=== PATIENT | female | born 1975 | race Caucasian/White ===

== ENCOUNTER 2021-08-03 09:23 | Outpatient (CLI) | payer BC, SELFPAY ==
--- NOTE | ~2021-08-03 | US_ITS ---
EXAMINATION: US pelvic complete w TV DATE: 08/03/2021 10:09 INDICATION: Irregular menstruation Comparison:No prior studies for comparison. TECHNIQUE: Multiple transabdominal and endovaginal sonographic images of the pelvis performed. FINDINGS: The uterus measures 9.3 x 5.4 x 3.5 cm. There is an IUD in the endometrium. The endometrial complex measures 5 mm. The right ovary measures 2.6 x 1.3 x 1.3 cm and the left ovary is not visualized. There is a hyperech oic focus in the right ovary, likely calcification measuring 3 mm. There are small follicles in each ovary. Normal doppler signal in both ovaries. There is no free fluid in the pelvis. There are no abnormal masses seen on either side. IMPRESSION: 1. Unremarkable pelvic ultrasound. IUD present in the endometrium. Reviewed, dictated and finalized at location A.
== END 2021-08-03 09:24 | disposition home or self-care (01) ==
LOC: ANHIMG 09:29
PROVIDERS: PCP Family Medicine; Visit Provider Obstetrics & Gynecology
DX: N92.6 Irregular menstruation, unspecified (principal); Z97.5 Presence of (intrauterine) contraceptive device
CPT/HCPCS: 76830; 76856

== ENCOUNTER 2021-09-13 14:04 | Outpatient (CLI) | payer BC, SELFPAY ==
--- NOTE | ~2021-09-13 | MM_ITS ---
EXAMINATION: MM screening britt BI w shefali HISTORY: Screening mammogram ; Baseline examination TECHNIQUE: Craniocaudal and mediolateral oblique 3-D tomosynthesis images were obtained and synthetic 2-D images were generated. CAD analysis was submitted and interpreted. COMPARISON: No prior mammogram is available for comparison at this institution. BREAST PARENCHYMAL COMPOSITION: The breasts are heterogeneously dense, which may obscure small masses . FINDINGS: There is no evidence of suspicious mass, calcification, or architectural distortion to sugg est malignancy in either breast. There has been no suspicious interval change. IMPRESSION: 1. No mammographic evidence of malignancy. 2. Recommend routine screening mammography in one year. BI-RADS Category 1: Negative Reviewed, dictated and finalized at location D.
== END 2021-09-13 14:05 | disposition home or self-care (01) ==
LOC: ANHIMG 14:04
PROVIDERS: PCP Family Medicine; Visit Provider Obstetrics & Gynecology
DX: Z12.31 Encounter for screening mammogram for malignant neoplasm of breast (principal)
CPT/HCPCS: 77063; 77067

== ENCOUNTER 2022-01-20 06:25 | Emergency (ER) | payer BC, SELFPAY ==
[2022-01-20 06:28] VITALS: BP 157/96; PULSE 82; RESP 20; TEMP 36.3; O2SAT 98
--- NOTE | 2022-01-20 06:52 | ED.EYEPROB ---
HPI - Eye Problem General Chief complaint: Eye Problems Stated complaint: Eye Swelling Time Seen by Provider: 01/20/22 06:35 History of Present Illness HPI Narrative: Patient is a 46-year-old female who presents ER with a right swollen eye. She reports that yesterday afternoon she was doing laundry and smacked herself in the eye with a chart changer. She had sudden onset pain. She has been having some tearing. Since then she has developed swelling. If she opens her eyelids she has clear vision without flashers or floaters. No purulent discharge. No fevers or chills or sweats. She is unsure if her eye was open or closed when she struck her self with a chart changer but she believes it may have been open. Related Data Home Medications Medication Instructions Recorded Confirmed multivitamin (Multiple Vitamins 1 tablet PO DAILY 07/26/21 07/26/21 tablet) pantoprazole 20 mg tablet,delayed 20 mg PO QAM 07/26/21 07/26/21 release (Protonix) copper 380 square mm intrauterine 1 device intrauterine ONCE 11/08/21 device (ParaGard T 380A) Allergies Allergy/AdvReac Type Severity Reaction Status Date / Time No Known Allergies Allergy Verified 01/20/22 06:31 Review of Systems Constitutional: Constitutional: Denies chills and Denies fever(s) Eyes: Eyes: Denies change in vision and Denies photophobia Comments: Tearing, swelling of upper and lower lid. ENT: Denies nasal congestion and Denies sore throat PMFSH Past Medical History Medical History (Updated 01/20/22 @ 07:12 by Chino Smalls MD) [place] Anxiety Encounter for insertion of ParaGard IUD 2012 removal / reinsertion -11/08/2021 Irregular periods Screening mammogram, encounter for Surgical History Surgical History History of x2 History of tonsillectomy Family History Family History Mother Lung cancer Social History Social History Smoking status: Never smoker Alcohol intake: never Substance use: never Substance use type: does not use Additional living arrangements comments: boyfriend Additional occupation/education comments: Nurse Gender identity (if verbalized by the patient): Female Sexual Orientation (if Verbalized by the Patient): Straight or Heterosexual Exam Narrative: GENERAL: Well-appearing, well-nourished, and in no acute distress. HEAD: Normocephalic, atraumatic. EYES: PERRL and EOMI. right eye with chemosis of the sclera on the lateral aspect with a small red dot where there is likely where she is traumatically struck. Tetracaine applied, as was fluorescein. The eye was viewed under magnification with a slit lamp. Corneal abrasion at the 3 o'clock position. Lid eversion performed and no foreign body identified. Negative Dorothy sign. Visual acuity 20/50 in each eye. EXTREMITIES: Normal range of motion. No edema. SKIN: Warm, dry, no rash. NEURO: Alert and oriented x3. PSYCH: Normal mood and affect. Course Course Emergency Course: Discussed treatment plan. Patient verbalized understanding. Discharge home. Vital Signs Vital signs: Vital Signs Temperature 97.4 F L 01/20/22 06:28 Pulse Rate 82 01/20/22 06:28 Respiratory Rate 20 01/20/22 06:28 Blood Pressure 157/96 H 01/20/22 06:28 Pulse Oximetry 98 01/20/22 06:28 Oxygen Delivery Room Air 01/20/22 06:28 Temperature 97.4 F L 01/20/22 06:28 Pulse Rate 82 01/20/22 06:28 Respiratory Rate 20 01/20/22 06:28 Blood Pressure 157/96 H 01/20/22 06:28 Pulse Oximetry 98 01/20/22 06:28 Oxygen Delivery Room Air 01/20/22 06:28 Discharge Plan Discharge Clinical Impression: Abrasion, corneal Patient Disposition: Home, Self-Care Condition: Stable Instructions: Corneal Abrasion (ED) Additional Instructions: Return to the ER if you have increased pain in yo
[2022-01-20 07:34] VITALS: BP 133/72; PULSE 73; RESP 17; O2SAT 100
== END 2022-01-20 07:39 | disposition home or self-care (01) ==
PROVIDERS: Emergency Provider Emergency Medicine; PCP Family Medicine
DX: S05.01XA Injury of conjunctiva and corneal abrasion without foreign body, right eye, initial encounter (principal); W22.8XXA Striking against or struck by other objects, initial encounter
CPT/HCPCS: 99283

== ENCOUNTER 2025-02-08 07:16 | Emergency (ER) | payer OTHER, SELFPAY ==
--- OUTSIDE RECORDS SUMMARY | 2023-11-27 03:00 | XMS_ITS ---
Author Organization [facility] Address [address] [place] [id number] Care Team Providers Care Cost Accountant Name Role Phone Lucian Lang [facility] [phone] Encounters Encounter Location Date Provider Diagnosis [facility] [address] [place] [address] [address] [place] [address] 11/27/2023 Lucian Lang Plan Of Treatment No Information Progress Notes * Enrico RICHTEROB: 8 (49 yo F)Acc No.[id number]:11/27/2023 Patient: Ama ALFAROel Provider: Danica Lang MD :1975 A ge:48 Y S ex:Female Date:11/27/2023 Address:[facility] Subjective: * Chief Complaints: * * Medical History: Objective: * Vitals: Assessment: Plan: * Treatment: * Billing Information: * Visit Code: * Procedure Codes: * Electronic signature of Lucian Lang MD on 02/08/2025 at 08:15 AM CDT Sign off status: Pending * Provider: Danica Lang MD Date: 11/27/2023 Generated for Lb quijano/Luci/Mally on: 02/08/2025 08:15 AM CDT
--- OUTSIDE RECORDS SUMMARY | 2024-03-19 03:00 | XMS_ITS ---
Author Organization [facility] Address [id number] [place] [address] [address] [place] [address] Care Team Providers Care As400 Analyst Name Role Phone Lanny Tavarez Unavailable [phone] REASON FOR VISIT left low back/hip pain Encounters Encounter Location Date Provider Diagnosis [facility] [address] [facility] [address] [place] [address] 03/19/2024 Lanny Tavarez Plan Of Treatment No Information Progress Notes * RICHTER AmaAmandaOB: 8 (49 yo F)Acc No.[id number]:03/19/2024 Progress Notes Patient: Elana ALFARO Provider: Italo Tavarez MD :1975 A ge:48 Y S ex:Female Date:03/19/2024 Address:[facility] Subjective: * Chief Complaints: * 1 . Left low back/hip pain. * Medical History: Objective: * Vitals: Assessment: Plan: * Treatment: * Billing Information: * Visit Code: * Procedure Codes: * Electronic signature of Nyasia Tavarez MD on 02/08/2025 at 08:15 AM CDT Sign off status: Pending * Provider: Italo Tavarez MD Date: 05/19/2023 Generated for Lb quijano/Luci/eTransmitting on: 0 02/08/2025 08:15 AM CDT
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
[2025-02-08 07:22] VITALS: BP 144/101; PULSE 77; RESP 20; TEMP 36.7; O2SAT 95
--- OUTSIDE RECORDS SUMMARY | 2025-02-08 08:15 | XMS_ITS | Encounter Summary ---
Author Organization [facility] Address [address] [place] [address] Care Team Providers Care Blacksmith Supervisor Name Role Phone Flor Carroll NP Primary Care P emma Reason for Referral * Diagnostic Imaging (Routine) - Closed Specialty Diagnoses / Procedures Referred By Contac t Referred To Contact Diagnoses Mass of lower inner quadrant of left breast Procedures US Breast Left Limited Flor Carroll NP [address] [place] [address] Phone: tel: fax: [facility] Referral ID Status Reason Start Date Expiration Date Visits Re quested Visits Authorized [id number] Closed 01/25/2025 02/24/2026 1 1 * Diagnostic Imaging (Routine) - Closed Specialty Diagnoses / Procedures [facility] Referred To Contact Diagnoses Mass of lower inner quadrant of left breast Procedures Diagnostic Mammogram Left [address] Flor Carroll NP [address] [place] [address] Phone: tel: fax: [facility] Referral ID Status Reason Start Date Expiration Date Visits Re quested Visits Authorized [id number] Closed 01/25/2025 02/24/2026 1 1 Encounter Details Date Type Department Care Team (Late st Contact Info) Description 01/25/2025 Results Follow-Up [facility] Primary [facility] at [facility] [address] [place] [address] Flor Carroll NP [address] [place] [address] Screening Mammogram Bilateral [address] Social History Tobacco Use Types Packs/Day Years Used Date Smoking Tobacco: Never Smokeless Tobacco: Never AUDIT-C Answer Date Recorded Q1: How often do you have a drink containing alcohol? Never 09/10/2024 Q2: How many drinks containi ng alcohol do you have on a typical day when you are drinking? Patient does not drink Q3: How often do you have si x or more drinks on one occasion? 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 No mammographic evidence of malignancy in the left breast. OVERALL FINAL ASSESSMENT: BI-RADS Category 2: Benign. RECOMMENDATION: Annual screening mammography is recommended. Dr. Val Nieves discussed the above findings and recommendations with the patient, who expressed her understanding of the management plan. Dictated by: Val Nieves MD, PhD The radiology attending physician has personally reviewed this study, and had reviewed and/or edited this written report and agrees with it. Electronically signed by: Emerita Mckenzie M.D. Narrative 02/02/2025 11:24 AM CDT EXAMINATION: LEFT UNILATERAL DIGITAL DIAGNOSTIC MAMMOGRAM AND DIGITAL BREAST TOMOSYNTHESIS; LEFT BREAST SONOGRAM HISTORY: 49-year-old called back from screening mammogram dated 01/07/2025 due to mass within the lower inner quadrant of the LEFT breast. COMPARISON: Screening mammograms dated 01/07/2025, 06/13/2023 TECHNIQUE: Full field digital mammographic views of the LEFT breast were performed, including computer aided detection (CAD) and digital breast tomosynthesis (DBT). Directed ultrasound evaluation of the LEFT breast was performed. BREAST PARENCHYMAL COMPOSITION: The breasts are heterogeneously dense, which may obscure small masses. MAMMOGRAM FINDINGS: Additional views of the LEFT breast, including spot compression views, demonstrate a persistent oval 5 mm equal density mass with margins in the lower central quadrant at anterior depth. There is no suspicious architectural distortion or grouped microcalcifications. SONOGRAM FINDINGS: Targeted sonographic images in the left breast at the 6:00 location 3 cm from the nipple demonstrates an oval anechoic 0.4 x 0.3 x 0.5 cm cyst with circumscribed margins, no internal vascularity, and posterior acoustic enhancement, consistent with a simple cyst. Flor Carroll NP IMG MAMMO IGNA[facility]IO [facility] Final Result * Diagnostic Mammogram Left [address] (02/02/2025 10:31 AM CDT) Anatomical Region Laterality Modality Breast Left Mammography 02/02/2025 10:5 0 AM CDT Impressions 02/02/2025 11:24 AM CDT Benign simple 0.5 cm cyst in the left breast at the 6:00 location 3 cm from the nipple correlates with screening detected mass. No mammographic evidence of malignancy in the left breast. OVERALL FINAL ASSESSMENT: BI-RADS Category 2: Benign. RECOMMENDATION: Annual screening mammography is recommended. Dr. Val Nieves discussed the above findings and recommendations with the patient, who expressed her understanding of the management plan. Dictated by: Val Nieves MD, PhD The radiology attending physician has personally reviewed this study, and had reviewed and/or edited this written report and agrees with it. Electronically signed by: Emerita Mckenzie M.D. Narrative 02/02/2025 11:24 AM CDT EXAMINATION: LEFT UNILATERAL DIGITAL DIAGNOSTIC MAMMOGRAM AND DIGITAL BREAST TOMOSYNTHESIS; LEFT BREAST SONOGRAM HISTORY: 49-year-old called back from screening mammogram dated 01/07/2025 due to mass within the lower inner quadrant of the LEFT breast. COMPARISON: Screening mammograms dated 01/07/2025, 06/13/2023 TECHNIQUE: Full field digital mammographic views of the LEFT breast were performed, including computer aided detection (CAD) and digital breast tomosynthesis (DBT). Directed ultrasound evaluation of the LEFT breast was performed. BREAST PARENCHYMAL COMPOSITION: The breasts are heterogeneously dense, which may obscure small masses. MAMMOGRAM FINDINGS: Additional views of the LEFT breast, including spot compression views, demonstrate a persistent oval 5 mm equal density mass with margins in the lower central quadrant at anterior depth. There is no suspicious architectural distortion or grouped microcalcifications. SONOGRAM FINDINGS: Targeted sonographic images in the left breast at the 6:00 location 3 cm from the nipple demonstrates an oval anechoic 0.4 x 0.3 x 0.5 cm cyst with circumscribed margins, no internal vascularity, and posterior acoustic enhancement, consistent with a simple cyst. Flor Carroll NP IMG MAMMO PROCE [facility] Final Result documented in this encounter Visit Diagnoses Diagnosis Mass of lower inner quadrant of left breast- Primary Mass of lower inner quadrant of left breast Mass of lower inner quadrant of left breast documented in this encounter Care Teams Blacksmith Supervisor Relationship Specialty Start Date End Date Flor Carroll NP [address] [place] [address] PCP - General Family Medicine 09/10/24 documented as of this encounter
--- OUTSIDE RECORDS SUMMARY | 2025-02-08 08:15 | XMS_ITS | Clinical Summary ---
Author Organization [facility] [address] [place] [address] Care Team Providers Care Crane Hooker Name Role Phone Flor Carroll NP Primary Care P aaronder Allergies No known active allergies Medications multivitamin tablet Take 1 tablet by mouth daily Active traZODone (DESYREL) 100 mg tablet Take 1 tablet (100 mg total) by mouth nightly 90 tablet 3 5 Active rOPINIRole (REQUIP) 0.5 mg tabletIndicatio ns:Restless Legs Syndrome Take one tab morning , 1 tab afternoon , 2 tabs at bedtime 360 tablet 3 5 Active Active Problems Problem Noted Date Diagnosed Date Iron deficiency anemia 09/14/2024 Vitamin D deficiency 09/14/2024 Screening for colon cancer 09/14/2024 Restless leg Insomnia Encounters Date Type Department Care Team Description 02/02/2025 10:14 AM CDT - 02/02/2025 11:59 PM CDT Hospital Encounter [facility] [address] [place] [address] Mass of lower inner quadrant of left breast Discharge Disposition: Discharge to home or self care 02/02/2025 10:13 AM CDT - 02/02/2025 11:59 PM CDT Hospital Encounter [facility] [address] [place] [address] Mass of lower inner quadrant of left breast Discharge Disposition: Discharge to home or self care 01/25/2025 Results Follow-Up [facility] Primary Care at [address] [address] Flor Carroll NP Screening Mammogram Bilateral W Ariel 01/07/2025 5:52 PM CDT - 01/07/2025 11:59 PM CDT Hospital Encounter [address] [address] Encounter for screening mammogram for malignant neoplasm of breast Discharge Disposition: Discharge to home or self care from Last 3 Months Immunizations Immunization Administration Dates Next Due COVID-19 mRNA ([place]) 0.3 m L (30 mcg) vaccine (12 years and up) 02/23/2023 Influenza, Quadrivalent, Spl it, Preservative Free, Intramuscular 02/23/2023,02/21/2021 Influenza, Unspecified 02/11/2024 Surgical History Surgery Date Site/Laterality Comments SECTION TONSILLECTOMY Medical History Medical History Date Comments Restless leg Insomnia Family History Medical History Relation Name Comments No Known Problems Father Cancer Mother Hypertension Mother Relation Name Status Comments Father Mother Social History Tobacco Use Types Packs/Day Years Used Date Smoking Tobacco: Never Smokeless Tobacco: Never Tobacco Cessation:Counseling Given: Not Answered AUDIT-C Answer Date Recorded Q1: How often [...] on file Legal 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 Gender Identity Not on file Sexual Orientation Not on file Obstetrics History Para Term AB IAB SAB Ectopic Multiple Livin g Live Births 5 2 Date Outcome GA Total Labor Labor/2nd/3rd Weight Sex Type Anes PTL Diana A1 A5 Name Clin Last Filed Vital Signs Vital Sign Reading Time Taken Comments Blood Pressure 120/92 09/10/2024 8:34 AM CDT Pulse 64 09/10/2024 8:34 AM CDT Temperature - - Respiratory Rate - - Oxygen Saturation 99% 09/10/2024 8:34 AM CDT Inhaled Oxygen Concentration - - Weight 62.1 kg (137 lb) 01/07/2025 6:03 PM CDT Height 172.7 cm (5' 8) 01/07/2025 6:03 PM CDT Body Mass Index 20.83 01/07/2025 6:03 PM CDT Plan of Treatment Health Maintenance Due Date Last Done Comments Cervical Cancer Screening 1977 Colon Cancer Screening-Colonoscopy 1977 Hepatitis C Screening 1977 DTaP/Tdap/Td Vaccine (1 - Tdap) 1988 Hepatitis B Screening 1995 Covid-19 Vaccine ( season) 2025 02/23/2023, 02/23/2023, 02/23/2023, Additional history exists Influenza Vaccine (#1) 2025 , 02/23/2023, 02/21/2021 Depression Screening 09/10/2025 09/10/2024 Regular Well Visit/Exam 18-64 09/10/2025 09/10/2024 Breast Cancer Screening-Mammogram 01/07/2026 01/07/2025, 06/13/2023, 06/13/2023, Additional history exists Pneumococcal vaccine <65 Aged Out No longer eligible based on patient's age to complete this topic Procedures Procedure Name Priority Date/Time Associated Diagnosis Comments US BREAST LEFT LIMITED Routine 02/02/2025 10:45 AM CDT Mass of lower inner quadrant of left breast DIAGNOSTIC MAMMOGRAM LEFT W ARIEL Routine 02/02/2025 10:31 AM CDT Mass of lower inner quadrant of left breast SCREENING MAMMOGRAM BILATERAL W ARIEL Schedule Routine, Read Routine (OP Routine) 01/07/2025 6:19 PM CDT Encounter for screening mammogram for malignant neoplasm of breast STOOL DNA COLOGUARD Routine 12/20/2024 4:35 PM CDT Screening for colon cancer from Last 3 Months Results * US Breast Left Limited (02/02/2025 [...] acoustic enhancement, consistent with a simple cyst. us Flor Carroll LAST CODE STRIPER IMG MAMMO IGNACIO NASH Final Result * [...] consistent with a simple cyst. Flor Carroll LAST CODE STRIPER [facility] MAMMO PROCE DURES Final Result * (ABNORMAL) Screening Mammogram Bilateral W Ariel (01/07/2025 6:19 PM CDT) Anatomical Region Laterality Modality Breast Bilateral Mammography Impressions 01/22/2025 1:55 PM CDT Left 1) Mass: Left breast mass in the lower inner quadrant in the anterior depth. Right No evidence of malignancy. OVERALL BI-RADS FINAL ASSESSMENT: 0 - Incomplete: Needs Additional Imaging Evaluation RECOMMENDATIONS: Recommend left breast diagnostic mammogram with possible ultrasound. Narrative 01/22/2025 1:55 PM CDT EXAMINATION: Screening Mammogram Bilateral W Ariel: 01/07/2025 COMPARISON: Prior outside mammogram from 06/13/2023 TECHNIQUE: Mammography was performed with 2D and digital breast tomosynthesis (DBT) images. CAD was utilized. BREAST PARENCHYMAL COMPOSITION: The breasts are heterogeneously dense, which may obscure small masses. FINDINGS: Left 1) Mass: There is a small round mass with circumscribed margins seen in the lower inner quadrant of the left breast in the anterior depth. Right There is no suspicious mass, calcification, or architectural distortion. There has been no suspicious interval change. Flor Carroll NP [facility] MAMMO PROCE DURES Final Result * Stool DNA - Cologuard (12/20/2024 4:35 PM CDT) Pathologist [facility] Stool DNA - Cologuard Negative Negative [facility] (CLIA #:[id number]) Comment: The Cologuard (TM) test was performed on this specimen. NEGATIVE TEST RESULT. A negative Cologuard result indicates a low likelihood that a colorectal cancer (CRC) or advanced adenoma (adenomatous polyps with more advanced pre-malignant features) is present. The chance that a person with a negative Cologuard test has a colorectal cancer is less than 1 in 1500 (negative predictive value >99.9%) or has an advanced adenoma is less than 5.3% (negative predictive value 94.7%). These data are based on a prospective cross-sectional study of 10,000 individuals at average risk for colorectal cancer who were screened with both Cologuard and colonoscopy. (Guerrero Izaguirre al, N Engl J Med 2014;370(14):1286- 1297) The normal value (reference range) for this assay is negative. COLOGUARD RE-SCREENING RECOMMENDATION: Periodic colorectal cancer screening is an important part of preventive healthcare for asymptomatic individuals at average risk for colorectal cancer. Following a negative Cologuard result, the [place] Cancer Society and U.S. Multi-Society Task Force screening guidelines recommend a Cologuard re-screening interval of 3 years. References: [place] Cancer Society Guideline for Colorectal Cancer Screening: https://www.cancer.org/cancer/xwjij-qdixdh-xxlgcl/idbwrtbak-nigycnmsf-xeqmtii/ac s-rec ommendations.html.; Flip DK, Ezekiel BALBUENA, Kenya BunnK, Colorectal Cancer Screening: Recommendations for Physicians and Patients from the U.S. Multi-Society Task Force on Colorectal Cancer Screening , Am J Gastroenterology 2017; 112:9956-8507. TEST DESCRIPTION: Composite algorithmic analysis of stool DNA-biomarkers with hemoglobin immunoassay. Quantitative values of individual biomarkers are not reportable and are not associated with individual biomarker result reference ranges. Cologuard is intended for colorectal cancer screening of adults of either sex, 45 years or older, who are at average-risk for colorectal cancer (CRC). Cologuard has been approved for use by the U.S. FDA. The performance of Cologuard was established in a cross sectional study of average-risk adults aged 50-84. Cologuard performance in patients ages 45 to 49 years was estimated by sub-group analysis of near-age groups. Colonoscopies performed for a positive result may find as the most clinically significant lesion: colorectal cancer [4.0%], advanced adenoma (including sessile serrated polyps greater than or equal to 1cm diameter) [20%] or non- advanced adenoma [31%]; or no colorectal neoplasia [45%]. These estimates are derived from a prospective cross-sectional screening study of 10,000 individuals at average risk for colorectal cancer who were screened with both Cologuard and colonoscopy. (Guerrero Dang, N Engl J Med 2014;370(14):8839-6381.) Cologuard may produce a false negative or false positive result (no colorectal cancer or precancerous polyp present at colonoscopy follow up). A negative Cologuard test result does not guarantee the absence of CRC or advanced adenoma (pre-cancer). The current Cologuard screening interval is every 3 years. ([place] Cancer Society and U.S. Multi-Society Task Force). Cologuard performance data in a 10,000 patient pivotal study using colonoscopy as the reference method can be accessed at the following location: www.[employer]/results. Additional description of the Cologuard test process, warnings and precautions can be found at www.cologuard.com. Stool 12/20/2024 4:35 PM CDT 12/22/2024 10:01 AM CDT Flor Carroll NP LAB BODY FLUIDS AND STOOLS ORDERABLES Final Result [facility] (CLIA #:[id number]) [address] [place] [address] from Last 3 Months Insurance [employer] Address: [facility] [id number] [id number] Care Teams Crane Hooker Relationship Specialty Start Date End Date Alvarez-Flor Ronquillo NP [address] [place] [address] PCP - General Family Medicine 09/10/24
--- OUTSIDE RECORDS SUMMARY | 2025-02-08 08:15 | XMS_ITS | Patient Health Record ---
Author Organization [facility] Address [address] [place] [address] Care Team Providers Care Production Assistant Name Role Phone Lanny Tavarez Unavailable [phone] Allergies No Known Allergies Reason For Referral No Information Medications Medication SIG (Take, Route, Fr equency, Duration) Notes Start Date End Date Status Ondansetron HCl 4 MG Oral; Duration: 3 Days Active FeroSul 325 (65 Fe) MG TAKE 1 TABLET BY MOUTH 2 TIMES DAILY Oral; Duration: 30 Days Active Cephalexin 500 MG TAKE ONE CAPSULE BY MOUTH EVERY 6 HOURS Oral; Duration: 5 Days Active Ibuprofen 800 MG TAKE 1 TABLET BY EZEQUIEL TH EVERY 8 HOURS NEEDED FOR PAIN Oral; Duration: 14 Days Active traZODone HCl 100 MG Oral; Duration: 30 Days Active rOPINIRole HCl 0.5 MG Oral; Duration: 30 Days Active Social History Tobacco Use: Social History Observation Description Date Details (start date - stop date) Never Smoker NA - NA Tobacco Control (Standard) Question Answer Notes Tobacco use: Nonsmoker Plan Of Treatment No Information Insurance Providers Payer Name Payer Address Payer Phone Subscriber Number Group Number Insured Name Patient Relationship to Insured Coverage Start Date Coverage End Date [facility] [address] [place] [address] [id number] Elana Snyder Self - patient is the insured Medications Administered Medication Instructions Date of Administration Dosage Notes Cerv / Thor Facet Joint Inj 1st Level 12/12/2023 Cerv / Thor Para-Med Branch 1st Level 12/26/2023 LEFT T11,12,L1 MBNB #2 Cerv / Thor Radiofreq Ablation 1st Level 01/22/2024 Lumb / Sacro Facet Joint Inj 1st Level 12/12/2023 Lumb / Sacro Para-Med Branch 1st Level 12/26/2023 Lumbar Radiofreq Ablation 1st Level 01/22/2024
--- OUTSIDE RECORDS SUMMARY | 2025-02-08 08:15 | XMS_ITS | Clinical Summary ---
Author Organization [facility] Address [address] [place] [address] Care Team Providers Care Manager Agricultural Name Role Phone Unavailable Primary Care Provider Unavailabl e Medications multivitamin (DAILY-DEUCE) tablet Take 1 Tablet by mouth daily. Active INTRAUTERINE DEVICE, IUD, INTRAUTERINE by Intrauterine route. paraguard Active ondansetron (ZOFRAN) 4 mg Tablet Take 1 Tablet (4 mg) by mouth every 8 hours as needed for Nausea/Emesis. 9 Tablet 4 Active ferrous sulfate 325 mg (65 mg iron) tabletIndication s:Iron deficiency anemia, unspecified iron deficiency anemia type Take 1 Tablet (325 mg) by mouth 2 times daily. 60 Tablet 2 4 Active rOPINIRole (REQUIP) 0.5 mg tablet TAKE 1 TABLET EVERY MORNING, 1 TABLET AT MID DAY AND 2 TABLETS AT BEDTIME. 360 Tablet 5 Active traZODone (DESYREL) 100 mg tablet TAKE 1 TABLET(100 MG) BY MOUTH DAILY AT BEDTIME 90 Tablet 3 5 Active Active Problems Problem Noted Date Diagnosed Date Other insomnia 05/22/2023 Overview (05/22/2023): - Medications include: Trazodone, Previously Melatonin - Hours of sleep per day: 7-8 - Sleep onset/maintenance?: both - Side effects?: none Assessment & Plan (05/22/2023 12:03 PM HEADLINER INSTALLER): Symptoms well-controlled. Continue medications as above. Good sleep hygieine reinforced. Encounters Date Type Department Care Team Description 01/27/2025 External Device Data ST[facility] ABSTRACTION Provider, Abstract 01/26/2025 External Device Data STL ABSTRACTION Provider, Abstract 12/15/2024 External Device Data STL ABSTRACTION Provider, Abstract 11/25/2024 External Device Data STL ABSTRACTION Provider, Abstract 11/24/2024 External Device Data STL ABSTRACTION Provider, Abstract from Last 3 Months Immunizations Immunization Administration Dates Next Due Influenza Seasonal Unspecified Formulation IM Family History Medical History Relation Name Comments No Known Problems Son 1 No Known Problems Son 2 son Relation Name Status Comments Father Maternal Grandfather Maternal Grandmother Mother Paternal Grandfather Paternal Grandmother Son 1 Alive Son 2 son Alive Social History Tobacco Use Types Packs/Day Years Used Date Smoking Tobacco: Never Smokeless Tobacco: Never Tobacco Cessation:Counseling Given: No Alcohol Use Standard Drinks/Week Comments Not Currently 0 (1 standard drink = 0.6 oz pur e alcohol) Comments Unknown Sex and Gender Information Value Date Recorded Sex Assigned at Not on file Legal Sex Female 9:19 PM CDT Gender Identity Not on file Sexual Orientation Not on file Last Filed Vital Signs Vital Sign Reading Time Taken Comments Blood Pressure 138/64 05/22/2023 11:45 AM HEADLINER INSTALLER Pulse 63 05/22/2023 11:45 AM HEADLINER INSTALLER Temperature 36.5 C (97.7 F) 05/22/2023 11:45 AM HEADLINER INSTALLER Respiratory Rate 21 05/22/2023 11:45 AM HEADLINER INSTALLER Oxygen Saturation 96% 05/22/2023 11:45 AM HEADLINER INSTALLER Inhaled Oxygen Concentration - - Weight 82.1 kg (181 lb) 05/22/2023 11:45 AM HEADLINER INSTALLER Height 172.7 cm (5' 8) 05/22/2023 11:45 AM HEADLINER INSTALLER Body Mass Index 27.52 05/22/2023 11:45 AM HEADLINER INSTALLER Plan of Treatment Health Maintenance Due Date Last Done Comments DTAP/TDAP/TD VACCINES (1 - Tdap) 1996 HEPATITIS B VACCINES (1 of 3 - 19+ 3-dose series) 12/1996 HPV/Cotest (21-29) 1998 CERVICAL CANCER SCREENING 2007 HPV/Cotest (30-65) 2007 PAP SMEAR 2007 COLORECTAL SCREENING 2022 Colorectal Cancer Screening 2022 FIT-DNA Q 3 years 2022 FIT/FOBT Q 1 year 2022 Flex Sig/CT Colonography Q 5 years 2022 BREAST CANCER SCREENING 06/13/2024 06/13/2023 INFLUENZA VACCINE (#1) 2024 02/23/2023 COVID-19 Vaccine ( season) 2025 Procedures Procedure Name Priority Date/Time Associated Diagnosis Comments MAMMO 3D GRACE SCREEN BILAT W OR WO CAD Routine 06/13/2023 6:22 PM HEADLINER INSTALLER Encounter for screening mammogram for malignant neoplasm of breast from Last 3 Months or Most Recently Relevant to Health Maintenance Results * MAMMO 3D GRACE SCREEN BILAT W OR WO CAD (06/13/2023 6:22 PM HEADLINER INSTALLER) Anatomical Region Laterality Modality Breast Bilateral Mammography 06/13/2023 6:22 PM HEADLINER INSTALLER Addenda Addendum by Yennifer Kearns MD on 06/21/2023 1:35 PM HEADLINER INSTALLER ADDENDUM: The patient's prior mammograms dated 09/13/2021 are now available for comparison. FINDINGS: No suspicious mass, suspicious microcalcifications, or architectural distortion is identified in either breast. Since the prior mammograms, there has been no significant interval change. Computer aided detection was used in the interpretation of this examination. IMPRESSION: No suspicious findings to suggest malignancy in either breast. Annual mammography is recommended. OVERALL FINAL ASSESSMENT: BI-RADS CATEGORY 1: Negative Impressions 06/15/2023 12:05 PM HEADLINER INSTALLER IMPRESSION: Prior mammograms are needed for comparison. An addendum will be issued once these are available for review. OVERALL FINAL ASSESSMENT: BI-RADS CATEGORY 0 - Incomplete: Needs prior mammograms for comparison. Narrative 06/15/2023 12:05 PM HEADLINER INSTALLER BILATERAL FULL-FIELD DIGITAL SCREENING MAMMOGRAM WITH CAD WITH TOMOGRAPHY DATE: 06/13/2023 6:22 PM HISTORY: Routine screening. DICTATION LOCATION: [facility] TECHNIQUE: Full-field digital craniocaudal and mediolateral oblique projections of both breasts were obtained. Low-dose full-field digital breast tomosynthesis examination was performed with 2D and 3D acquisitions. Examination is read in conjunction with computer aided detection. COMPARISON: No prior studies are available for comparison. BREAST COMPOSITION: The breasts are heterogeneously dense, which may obscure small masses. FINDINGS: Prior mammograms are needed for comparison. Procedure Note Yennifer Kearns MD - 06/15/2023 BILATERAL FULL-FIELD DIGITAL SCREENING MAMMOGRAM WITH CAD WITH TOMOGRAPHY DATE: 06/13/2023 6:22 PM HISTORY: Routine screening. DICTATION LOCATION: [facility] TECHNIQUE: Full-field digital craniocaudal and mediolateral oblique projections of both breasts were obtained. Low-dose full-field digital breast tomosynthesis examination was performed with 2D and 3D acquisitions. Examination is read in conjunction with computer aided detection. COMPARISON: No prior studies are available for comparison. BREAST COMPOSITION: The breasts are heterogeneously dense, which may obscure small masses. FINDINGS: Prior mammograms are needed for comparison. IMPRESSION: Prior mammograms are needed for comparison. An addendum will be issued once these are available for review. OVERALL FINAL ASSESSMENT: BI-RADS CATEGORY 0 - Incomplete: Needs prior mammograms for comparison. Kitty Thomas [facility] MAMMO ORDERABLES Edited Result - Final from Last 3 Months or Most Recently Relevant to Health Maintenance
[2025-02-08 08:33] VITALS: BP 128/92; PULSE 73; RESP 18; O2SAT 100
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
== END 2025-02-08 09:38 | disposition home or self-care (01) ==
PROVIDERS: Emergency Provider General Practice
DX: S05.11XA Contusion of eyeball and orbital tissues, right eye, initial encounter (principal); H11.31 Conjunctival hemorrhage, right eye; Y04.2XXA Assault by strike against or bumped into by another person, initial encounter
CPT/HCPCS: 70450; 70486; 72125; 99284